=== PATIENT | female | born 1940 | race Caucasian/White ===

== ENCOUNTER → 2020-03-09 11:49 | Outpatient (BNVA) | payer MEDICARE, SELFPAY | PROVIDERS: Family Provider Nurse Practitioner Family; Visit Provider Nurse Practitioner Family | DX: Z79.899 Other long term (current) drug therapy (principal); E03.9 Hypothyroidism, unspecified; E55.9 Vitamin D deficiency, unspecified; Z13.6 Encounter for screening for cardiovascular disorders; M19.90 Unspecified osteoarthritis, unspecified site | CPT/HCPCS: 80053; 80061; 81001; 82306; 83036; 84443; 85025; 85651; 86140; 86431 ==

== ENCOUNTER → 2020-03-16 10:49 | Outpatient (BNVA) | payer MEDICARE, SELFPAY | PROVIDERS: Family Provider Nurse Practitioner Family; Visit Provider Nurse Practitioner Family | DX: M79.10 Myalgia, unspecified site (principal) | CPT/HCPCS: 86618; 86666; 86757 ==

== ENCOUNTER → 2020-03-17 10:49 | Outpatient (BNVA) | payer MEDICARE, SELFPAY | PROVIDERS: Family Provider Nurse Practitioner Family; Visit Provider Nurse Practitioner Family | DX: M79.10 Myalgia, unspecified site (principal) | CPT/HCPCS: 86000 ==

== ENCOUNTER → 2020-03-30 10:09 | Outpatient (BNVA) | payer MEDICARE, SELFPAY | PROVIDERS: Family Provider Nurse Practitioner Family; Visit Provider Family Medicine | DX: R30.0 Dysuria (principal); M19.90 Unspecified osteoarthritis, unspecified site; D64.9 Anemia, unspecified; R53.83 Other fatigue | CPT/HCPCS: 81001; 82607; 82728; 82746; 83550; 84550 ==

== ENCOUNTER 2020-04-16 08:18 | Outpatient (CLI) | payer MEDICARE, SELFPAY ==
--- NOTE | 2020-04-16 08:00 | MM_ITS ---
WS: [id number] Right breast diagnostic digital mammogram, 04/16/2020 Clinical Data: abnormal mammogram Comparison: 09/11/2019, 08/19/2019, 08/15/2018, 07/25/2017, 04/18/2016, 03/23/2015, 06/14/2012, 09/14/20 11, 08/13/2010. Findings: The small density seen on previous studies in the upper outer quadrant of the right breast is not ralf arent on the MLO and MLO views. The cc view shows that it may be present but it is smaller. The remai nder of the right breast shows heterogeneous density. No spiculated masses or clustered calcification s are seen. MM/[place] [id number] Impression: 1. Small density in upper outer quadrant right breast is almost completely reso lved. 2. Recommend return to annual screening mammograms. BIRADS: 2-Benign FOLLOW UP: 1 Year Follow-up The CAD film tests checker was used.
== END 2020-04-16 08:19 | disposition home or self-care (01) ==
LOC: RADSHAW 08:25
PROVIDERS: PCP Nurse Practitioner Family; Visit Provider Nurse Practitioner Family
DX: R92.8 Other abnormal and inconclusive findings on diagnostic imaging of breast (principal)
CPT/HCPCS: 77065

== ENCOUNTER 2020-04-20 13:39 | Outpatient (CLI) | payer MEDICARE, SELFPAY ==
--- NOTE | 2020-04-20 14:15 | XR_ITS ---
WS: [id number] SCREENING DEXA SCAN [employer] CLINICAL INFORMATION: postmenopausal osteoporosis COMPARISON: None. FINDINGS: The L1-L4 bone mineral density measures 1.215 g/cm2. This corresponds to a T score score of 0.3 and Z score of 1.2. Left femoral neck bone mineral density measures 1.001 g/cm2. This corresponds to a T score of -0.1 an d Z score of 1.2. Right femoral neck bone mineral density measures 0.892 g/cm2. This corresponds to a T score -0.9of an d Z score of 0.4. Mean femoral neck bone mineral density measures 0.947 g/cm2. This corresponds to a T score of -0.5 an d Z score of 0.8. XR/XR DEXA axial skeleton* [id number] IMPRESSION: Normal bone mineralization. Patient's FRAX calculated 10 year probability for major osteoporotic fracture i s 12.1 % and osteoporotic hip fracture is 2.7%.
== END 2020-04-20 13:40 | disposition home or self-care (01) ==
LOC: RADWPI 13:41
PROVIDERS: Family Provider Nurse Practitioner Family; PCP Nurse Practitioner Family; Visit Provider Nurse Practitioner Family
DX: M81.0 Age-related osteoporosis without current pathological fracture (principal)
CPT/HCPCS: 77080

== ENCOUNTER → 2020-05-06 09:56 | Day surgery (SDC) | payer MEDICARE, SELFPAY ==
[2020-05-06 10:20] VITALS: BMI 32.3
[2020-05-06] MEDS: ferric carboxy (IVPB) 750 MG in sodium chloride 0.9% (100 ml) 100 ML 345 MG IV (10:35)
== END ==
PROVIDERS: PCP Nurse Practitioner Family; Visit Provider Nurse Practitioner Family
DX: E61.1 Iron deficiency (principal); K90.9 Intestinal malabsorption, unspecified
CPT/HCPCS: 96365; J1439

== ENCOUNTER → 2020-05-14 11:58 | Outpatient (BNVA) | payer MEDICARE, SELFPAY | PROVIDERS: PCP Nurse Practitioner Family; Visit Provider Nurse Practitioner Family | DX: E53.8 Deficiency of other specified B group vitamins (principal); D64.9 Anemia, unspecified; R31.9 Hematuria, unspecified | CPT/HCPCS: 80053; 81003; 83540; 85025 ==

== ENCOUNTER → 2020-07-09 09:57 | Outpatient (BNVA) | payer MEDICARE, SELFPAY | PROVIDERS: PCP Nurse Practitioner Family; Visit Provider Nurse Practitioner Family | DX: D64.9 Anemia, unspecified (principal); M19.90 Unspecified osteoarthritis, unspecified site; L82.1 Other seborrheic keratosis | CPT/HCPCS: 82607; 83550 ==

== ENCOUNTER → 2021-05-06 11:27 | Outpatient (BNVA) | payer MEDICARE, SELFPAY | PROVIDERS: PCP Nurse Practitioner Family; Visit Provider Nurse Practitioner Family | DX: E53.8 Deficiency of other specified B group vitamins (principal); Z79.899 Other long term (current) drug therapy; E61.1 Iron deficiency; E03.9 Hypothyroidism, unspecified; Z13.6 Encounter for screening for cardiovascular disorders; E55.9 Vitamin D deficiency, unspecified | CPT/HCPCS: 80053; 80061; 81003; 82306; 82607; 83036; 83550; 84443; 85025 ==

== ENCOUNTER → 2022-02-25 09:52 | Outpatient (BNVA) | payer MEDICARE, SELFPAY | PROVIDERS: PCP Nurse Practitioner Family; Visit Provider Nurse Practitioner Family | DX: R68.89 Other general symptoms and signs (principal) | CPT/HCPCS: 81000; 87400; 87635 ==

== ENCOUNTER 2022-08-03 14:08 | Outpatient (CLI) | payer MEDICARE, SELFPAY ==
--- NOTE | 2022-08-03 14:26 | MM_ITS ---
WS: [id number] BILATERAL 3D TOMOSYNTHESIS DIGITAL SCREENING MAMMOGRAPHY WITH CAD CLINICAL INFORMATION: SCREENING HISTORY: Screening mammogram. No current complaints. COMPARISON: None. TECHNIQUE: Bilateral CC and MLO views. FINDINGS: The breasts are composed of heterogeneous fibroglandular density tissue, which can limit the detectio n of small underlying mass lesions. No suspicious mass, asymmetry, calcifications, or architectural d istortion. No evidence of malignancy. Punctate and lucent centered calcifications. Stable diffuse sca ttered punctate calcifications bilaterally. Dystrophic calcifications upper outer LEFT breast. Stable 9 mm nodule medial LEFT breast. MM/[place] [id number] IMPRESSION: BI-RADS: 2-Benign FOLLOW UP: 1 Year Follow-up Recommend return to annual screening mammography.
== END 2022-08-03 14:09 | disposition home or self-care (01) ==
LOC: RAD 14:15
PROVIDERS: PCP Nurse Practitioner Family; Visit Provider Nurse Practitioner Family
DX: Z12.31 Encounter for screening mammogram for malignant neoplasm of breast (principal)
CPT/HCPCS: 77063; 77067

== ENCOUNTER → 2022-12-14 10:22 | Outpatient (BNVA) | payer MEDICARE, SELFPAY | PROVIDERS: PCP Nurse Practitioner Family; Visit Provider Family Medicine | DX: D64.9 Anemia, unspecified (principal); E61.1 Iron deficiency; M19.90 Unspecified osteoarthritis, unspecified site; E03.9 Hypothyroidism, unspecified; Z79.899 Other long term (current) drug therapy | CPT/HCPCS: 80053; 80061; 82728; 83036; 83540; 84443; 85025 ==

== ENCOUNTER → 2024-05-30 11:33 | Outpatient (BNVA) | payer MEDICARE, SELFPAY | PROVIDERS: PCP Nurse Practitioner Family; Visit Provider Nurse Practitioner Family | DX: M25.561 Pain in right knee; G89.29 Other chronic pain; M17.11 Unilateral primary osteoarthritis, right knee | CPT/HCPCS: 73562 ==

== ENCOUNTER → 2024-06-19 12:56 | Outpatient (BNVA) | payer MEDICARE, SELFPAY | PROVIDERS: PCP Nurse Practitioner Family; Visit Provider Specialist | DX: M17.11 Unilateral primary osteoarthritis, right knee (principal) | CPT/HCPCS: 20610; 73560; 73565; 99204 ==

== ENCOUNTER → 2024-10-10 11:27 | Outpatient (BNVA) | payer MEDICARE, SELFPAY | PROVIDERS: PCP Nurse Practitioner Family; Visit Provider Nurse Practitioner Family | DX: E55.9 Vitamin D deficiency, unspecified; Z13.6 Encounter for screening for cardiovascular disorders; E03.9 Hypothyroidism, unspecified; E53.8 Deficiency of other specified B group vitamins; D64.9 Anemia, unspecified; E61.1 Iron deficiency; Z85.828 Personal history of other malignant neoplasm of skin; R39.9 Unspecified symptoms and signs involving the genitourinary system; R44.3 Hallucinations, unspecified | CPT/HCPCS: 80053; 80061; 81003; 82306; 82607; 82728; 83036; 83550; 84425; 84443; 85025; 87086 ==

== ENCOUNTER → 2024-10-16 15:11 | Outpatient (BNVA) | payer MEDICARE, SELFPAY | PROVIDERS: PCP Nurse Practitioner Family; Visit Provider Nurse Practitioner Family | DX: R39.9 Unspecified symptoms and signs involving the genitourinary system (principal); R68.89 Other general symptoms and signs | CPT/HCPCS: 81003 ==

== ENCOUNTER 2024-11-06 09:31 | Outpatient (CLI) | payer MEDICARE, SELFPAY ==
--- NOTE | 2024-11-06 10:00 | US_ITS ---
WS: [id number] Complete ABDOMINAL ULTRASOUND HISTORY: R79.89 - Other specified abnormal findings of blood chemi... COMPARISON: None available. Liver: 15.0 cm in length. Normal size liver and echogenicity. No bile duct dilatation or mass. Portal Vein: Normal hepatopetal flow with monophasic waveform. Gallbladder: Numerous stones with shadowing filling a large portion of the gallbladder. No pericholecystic fluid. CBD: 0.4 cm Pancreas: Normal size and echogenicity. Right kidney: 10.4 cm x 4.4 x 5.0 cm. Cortex:1.0 cm. Normal size and echogenicity. No hydronephrosis or mass. Left kidney: 11.0 cm x 5.0 cm x 5.1 cm. Cortex: 1.1 cm. Normal size and echogenicity. No hydronephrosis or mass. Spleen: 10.0 cm. Limited. Aorta and IVC: Unremarkable abdominal aorta and IVC. US/US abdomen complete* [id number] Impression: 1. Cholelithiasis without evidence for acute cholecystitis or bile duct dilata tion. Numerous stones fill the gallbladder lumen. 2. No hydronephrosis or mass. 3. Negative liver.
== END 2024-11-06 09:32 | disposition home or self-care (01) ==
PROVIDERS: PCP Nurse Practitioner Family; Visit Provider Nurse Practitioner Family
DX: R79.89 Other specified abnormal findings of blood chemistry (principal); K80.20 Calculus of gallbladder without cholecystitis without obstruction
CPT/HCPCS: 76700

== ENCOUNTER 2025-02-06 14:47 | Oncology outpatient (recurring) (ONCR) | payer MEDICARE, SELFPAY ==
[2025-02-06 15:40] LABS: Basophils # 0.1 10^3/uL (0.0-0.1); Basophils % 0.7 %; Eosinophils # 0.1 10^3/uL (0.0-0.8); Eosinophils % 1.4 %; Lymphocytes # 2.3 10^3/uL (0.8-4.8); Lymphocytes % 32.8 %; Mean Corpuscular HGB Conc 32.4 g/dL (30-55); Mean Corpuscular Hemoglobin 29.4 pg (27-33); Mean Corpuscular Volume 90.7 fl (85-98); Mean Platelet Volume 9.2 fL (7.4-10.4); Monocytes # 0.5 10^3/uL (0.2-0.9); Monocytes % 7.6 %; Neutrophils # 4.08 10^3/uL (1.8-7.7); Neutrophils % 57.4 %; Nucleated Red Blood Cells % 0 %; Platelet Count 411 10^3/cmm (157-399); Red Blood Count 4.96 10^6/uL (3.85-5.65); Red Cell Distribution Width 12.8 % (12.1-15.1); White Blood Count 7.11 10^3/uL (3.29-11.43)
[2025-02-06 16:02] LABS: Alanine Aminotransferase 12 U/L (0-33); Albumin Level 4.1 g/dL (3.5-5.2); Alkaline Phosphatase 34 U/L (35-105); Anion Gap 16.4 (5-19); Aspartate Amino Transferase 15 U/L (0-32); Blood Urea Nitrogen 13 mg/dL (8-23); Calcium 9.5 mg/dL (8.5-10.5); Carbon Dioxide 26 mmol/L (22-29); Chloride 103 mmol/L (98-107); Creatinine Clr Calc Pharmacy 60.8903; Globulin 2.6 g/dL (1.3-4.6); Glucose 132 mg/dL (65-115); Lactate Dehydrogenase 170 U/L (135-214); Osmolality Calculated 294 mOsm/kg (285-295); Potassium 4.4 mmol/L (3.5-5.1); Sodium 141 mmol/L (136-145); Total Bilirubin 0.3 mg/dL (0.15-1.2); Total Protein 6.7 g/dL (6.6-8.7); Uric Acid 5.9 mg/dL (2.4-5.7)
[2025-02-13 19:00] LABS: CALR Exon 9 Mutation NOT DETECTED (NOT DETECTED); JAK2 Exon 12 Mutation NOT DETECTED (NOT DETECTED); JAK2 V617 Clinical Indication thrombocythemia; JAK2 V617 Mutation NOT DETECTED (NOT DETECTED); MPL Exon 10 Mutation NOT DETECTED (NOT DETECTED); Specimen Source blood
== END 2025-03-01 23:59 | disposition home or self-care (01) ==
PROVIDERS: PCP Nurse Practitioner Family; Visit Provider Internal Medicine
DX: R79.89 Other specified abnormal findings of blood chemistry (principal); D75.839 Thrombocytosis, unspecified
CPT/HCPCS: 36415; 80053; 81219; 81270; 81279; 81339; 83010; 83615; 84550; 85025; 86140; 99204

== ENCOUNTER 2025-03-12 16:00 | Oncology outpatient (recurring) (ONCR) | payer MEDICARE, SELFPAY ==
[2025-03-05 11:45] LABS: Basophils # 0.1 10^3/uL (0.0-0.1); Basophils % 0.7 %; Eosinophils # 0.1 10^3/uL (0.0-0.8); Eosinophils % 1.7 %; Hematocrit 44.1 % (36-47); Lymphocytes # 2.7 10^3/uL (0.8-4.8); Lymphocytes % 35.8 %; Mean Corpuscular HGB Conc 32.4 g/dL (30-55); Mean Corpuscular Hemoglobin 29.1 pg (27-33); Mean Corpuscular Volume 89.8 fl (85-98); Mean Platelet Volume 9.2 fL (7.4-10.4); Monocytes # 0.6 10^3/uL (0.2-0.9); Monocytes % 7.6 %; Neutrophils # 4.07 10^3/uL (1.8-7.7); Neutrophils % 53.9 %; Nucleated Red Blood Cells % 0 %; Platelet Count 378 10^3/cmm (157-399); Red Blood Count 4.91 10^6/uL (3.85-5.65); Red Cell Distribution Width 12.9 % (12.1-15.1); White Blood Count 7.54 10^3/uL (3.29-11.43)
[2025-03-05 12:03] LABS: Alanine Aminotransferase 12 U/L (0-33); Albumin Level 4.1 g/dL (3.5-5.2); Alkaline Phosphatase 31 U/L (35-105); Aspartate Amino Transferase 20 U/L (0-32); Blood Urea Nitrogen 11 mg/dL (8-23); Calcium 9.2 mg/dL (8.5-10.5); Carbon Dioxide 25 mmol/L (22-29); Chloride 101 mmol/L (98-107); Globulin 2.8 g/dL (1.3-4.6); Glucose 135 mg/dL (65-115); Osmolality Calculated 289 mOsm/kg (285-295); Sodium 139 mmol/L (136-145); Total Bilirubin 0.6 mg/dL (0.15-1.2); Total Protein 6.9 g/dL (6.6-8.7)
[2025-03-12 16:19] LABS: Ferritin 737 ng/mL (15-150); Iron 36 ug/dL (37-145); Percent Saturation 24.3 % (20-50); Total Iron Binding Capacity 148 mcg/dl; Unsaturated Iron Binding 112 ug/dL (112-347)
== END 2025-03-31 23:59 | disposition home or self-care (01) ==
PROVIDERS: PCP Nurse Practitioner Family; Visit Provider Internal Medicine
DX: Z53.9 Procedure and treatment not carried out, unspecified reason; D75.839 Thrombocytosis, unspecified; R79.89 Other specified abnormal findings of blood chemistry; Z87.891 Personal history of nicotine dependence; M15.9 Polyosteoarthritis, unspecified; E66.9 Obesity, unspecified; Z86.31 Personal history of diabetic foot ulcer; D64.9 Anemia, unspecified
CPT/HCPCS: 36415; 80053; 81256; 82728; 83540; 83550; 85025; 99213

== ENCOUNTER 2025-04-09 12:45 | Oncology outpatient (recurring) (ONCR) | payer MEDICARE, SELFPAY ==
[2025-04-09 13:14] LABS: Hematocrit 43.7 % (36-47); Hemoglobin 14.20 g/dL (11.27-16.99); Mean Corpuscular HGB Conc 32.5 g/dL (30-55); Mean Corpuscular Hemoglobin 29.3 pg (27-33); Mean Corpuscular Volume 90.1 fl (85-98); Nucleated Red Blood Cells % 0 %; Platelet Count 380 10^3/cmm (157-399); Red Blood Count 4.85 10^6/uL (3.85-5.65); White Blood Count 8.29 10^3/uL (3.29-11.43)
[2025-04-09 13:32] LABS: Alanine Aminotransferase 12 U/L (0-33); Albumin Level 4.0 g/dL (3.5-5.2); Alkaline Phosphatase 30 U/L (35-105); Anion Gap 17.3 (5-19); Aspartate Amino Transferase 16 U/L (0-32); Blood Urea Nitrogen 13 mg/dL (8-23); Calcium 9.2 mg/dL (8.5-10.5); Carbon Dioxide 25 mmol/L (22-29); Chloride 101 mmol/L (98-107); Creatinine Clr Calc Pharmacy 59.2301; Ferritin 719 ng/mL (15-150); Globulin 2.6 g/dL (1.3-4.6); Glucose 127 mg/dL (65-115); Iron 43 ug/dL (37-145); Osmolality Calculated 290 mOsm/kg (285-295); Potassium 4.3 mmol/L (3.5-5.1); Sodium 139 mmol/L (136-145); Total Iron Binding Capacity 155 mcg/dl; Total Protein 6.6 g/dL (6.6-8.7); Unsaturated Iron Binding 112 ug/dL (112-347)
== END 2025-05-01 23:59 | disposition home or self-care (01) ==
PROVIDERS: PCP Nurse Practitioner Family; Visit Provider Internal Medicine
DX: D75.839 Thrombocytosis, unspecified (principal); R79.89 Other specified abnormal findings of blood chemistry; E53.8 Deficiency of other specified B group vitamins; E61.1 Iron deficiency; D64.9 Anemia, unspecified; Z87.891 Personal history of nicotine dependence; M19.09 Primary osteoarthritis, other specified site; E66.9 Obesity, unspecified; Z68.30 Body mass index [BMI] 30.0-30.9, adult
CPT/HCPCS: 36415; 80053; 82728; 83010; 83540; 83550; 83615; 85025; 99213